=== PATIENT | female | born 1950 | race Caucasian/White ===

== ENCOUNTER → 2016-09-23 | Outpatient (CLI) | payer OTHER ==
--- NOTE | ~2016-09-23 | MY11 ---
[facility] A Service of [facility] RADIOLOGY TEXT RESULTS PATIENT: AVE NIEVES LOCATION: [facility] : 54 UNIT #: [id number] AGE: [address]: Mary Jo Smith SEX: F ORDER DR: [id number] [facility]. [place], [place] [address] [id number] MR#: [id number] Acc #: [id number] NAME: AVE NIEVES : 1950 SEX: F STUDY DATE/TIME: 09/23/2016 12:30 UNIT: [facility] ROOM: STUDY DESCRIPTION: MY Mammogram Screening Dig Phong Attending Physician: Mary Jo Smith A.P.R.N. Referring Physician: Mary Jo Smith A.P.R.N. Ordering Physician: Mary Jo Smith A.P.R.N. Primary Care Physician: Mary Jo Smith A.P.R.N. MEDICAL IMAGING REPORT This report is preliminary unless electronic signature is present EXAM Bilateral digital screening mammogram with CAD. DATE 09/23/2016 HISTORY No personal or family history of breast cancer or current complaints. COMPARISON Bilateral screening mammogram 07/30/2009 performed at [facility]. SPECIAL COMMENT: This study was originally performed on 09/23/2016 and was submitted for termination today, 09/28/2016, after the arrival of outside comparisons. FINDINGS CC and MLO views were obtained of each breast utilizing digital technique and reviewed with an FDA-approved CAD device. Scattered fibroglandular densities are present bilaterally. Asymmetric fibroglandular tissue within the lateral hemisphere left breast central third, unchanged from prior. No new or developing nodules are seen. Extensive benign lucent-centered calcifications are present within each breast, but no suspicious clustered microcalcifications are identified. There is no architectural distortion. IMPRESSION BIRADS 2. Benign findings. Routine bilateral screening mammogram recommended in 1 year. Patients over the age of 40 are entered into a reminder system with target due date for the next mammogram. A result letter will also be sent to the [facility] A Service of [facility] RADIOLOGY TEXT RESULTS PATIENT: AVE NIEVES LOCATION: [facility] : 54 UNIT #: [id number] AGE: [address]: Mary Jo Smith SEX: F ORDER DR: patient. BIRADS: 2 Benign finding. Dictated by... Bessy Carreno M.D. THIS IS AN ELECTRONICALLY VERIFIED REPORT Bessy Carreno M.D. at 09/29/2016 7:03 AM TOM/alejandra TD: 09/28/2016 12:53 JOB #: [id number] MEDICAL IMAGING REPORT Page 1 of 1 COPY
== END | disposition home or self-care (01) ==
LOC: CWCC 12:00
DX: Z12.31 Encounter for screening mammogram for malignant neoplasm of breast (principal)
CPT/HCPCS: G0202